=== PATIENT | male | born 1940 | race Two or more races ===

== ENCOUNTER 2020-06-10 09:52 | Outpatient (CLI) | payer OTHER | END 2020-06-10 09:54 | disposition home or self-care (01) | LOC: SONOGRAMA 09:52 → MAMO-SONO 10:15 | PROVIDERS: ATTEND Internal Medicine Cardiovascular Disease | DX: R10.84 Generalized abdominal pain (principal) ==

== ENCOUNTER 2021-01-25 08:45 | Outpatient (CLI) | payer OTHER | END 2021-01-25 08:46 | disposition home or self-care (01) | LOC: NUCLEAR 08:45 | PROVIDERS: ATTEND Internal Medicine Cardiovascular Disease | DX: I73.9 Peripheral vascular disease, unspecified (principal) ==

== ENCOUNTER 2021-01-28 09:14 | Outpatient (CLI) | payer OTHER | END 2021-01-28 09:16 | disposition home or self-care (01) | LOC: NUCLEAR 09:14 | PROVIDERS: ATTEND Internal Medicine Cardiovascular Disease | DX: I87.2 Venous insufficiency (chronic) (peripheral) (principal) ==

== ENCOUNTER 2021-01-28 11:43 | Inpatient (IN) | payer OTHER ==
[~2021-01-28] VITALS: Ht 177.8 cm; Wt 68.0 kg
[2021-01-31] MEDS ORDERED: LUMIGAN2.5 M1 (08:33)
[2021-01-31] MEDS ORDERED: LEVOTHYROXINE50 MCG (08:33)
[2021-01-31] MEDS ORDERED: ST. JOSEPH ASPI81 M2 (08:33)
[2021-01-31] MEDS ORDERED: TAMSULOSIN HCL0.4 MG (08:33)
[2021-01-31] MEDS ORDERED: DORZOLAMIDE-TIM10 ML (08:34)
== END 2021-03-04 12:19 | disposition home or self-care (01) | DRG 240 ==
LOC: MEDJ 11:43 → SEC-K 11:43 → MEDJ 01-29 21:43 → SEC-K 01-30 03:07 → MEDJ 01-30 05:53
PROVIDERS: Specialist; ADMIT Internal Medicine Cardiovascular Disease; ATTEND Internal Medicine Cardiovascular Disease
PROC: 0JBR0ZZ Excision of Left Foot Subcutaneous Tissue and Fascia, Open Approach (ICD-10-PCS; 2021-02-07)
PROC: 0Y6N0ZB Detachment at Left Foot, Partial 2nd Ray, Open Approach (ICD-10-PCS; principal; 2021-02-07 07:30)
PROC: 30233N1 Transfusion of Nonautologous Red Blood Cells into Peripheral Vein, Percutaneous Approach (ICD-10-PCS; 2021-02-22)
PROC: 0Y6N0ZF Detachment at Left Foot, Partial 5th Ray, Open Approach (ICD-10-PCS; 2021-02-23)
DX: E11.52 Type 2 diabetes mellitus with diabetic peripheral angiopathy with gangrene (principal); I96 Gangrene, not elsewhere classified; E11.621 Type 2 diabetes mellitus with foot ulcer; L97.524 Non-pressure chronic ulcer of other part of left foot with necrosis of bone; Z20.822 Contact with and (suspected) exposure to COVID-19; B95.61 Methicillin susceptible Staphylococcus aureus infection as the cause of diseases classified elsewhere
CPT/HCPCS: 70553

== ENCOUNTER 2021-09-10 06:24 | Inpatient (IN) | payer OTHER ==
[~2021-09-10] VITALS: Ht 177.8 cm; Wt 73.5 kg
[~2021-09-10 06:24] MED LIST: DORZOLAMIDE-TIM10 ML; LEVOTHYROXINE50 MCG; LUMIGAN2.5 M1; ST. JOSEPH ASPI81 M2; TAMSULOSIN HCL0.4 MG
[2021-09-20] MEDS ORDERED: NIFEDIPINE ER60 MG PO (09:10)
[2021-09-20] MEDS ORDERED: LOSARTAN POTAS100 MG PO (09:10)
== END 2021-09-20 19:30 | disposition home or self-care (01) | DRG 616 ==
LOC: ER 06:24 → MEDI 18:17 → MEDJ 18:17 → MEDI 09-13 19:06
PROVIDERS: ADMIT Internal Medicine; ATTEND Internal Medicine
PROC: 8E0ZXY6 Isolation (ICD-10-PCS; 2021-09-10)
PROC: 4A12X4Z Monitoring of Cardiac Electrical Activity, External Approach (ICD-10-PCS; 2021-09-11)
PROC: 0Y6N0Z6 Detachment at Left Foot, Complete 3rd Ray, Open Approach (ICD-10-PCS; principal; 2021-09-15)
DX: E11.621 Type 2 diabetes mellitus with foot ulcer (principal); U07.1 COVID-19; E11.52 Type 2 diabetes mellitus with diabetic peripheral angiopathy with gangrene; I96 Gangrene, not elsewhere classified; M86.172 Other acute osteomyelitis, left ankle and foot; B95.61 Methicillin susceptible Staphylococcus aureus infection as the cause of diseases classified elsewhere; L97.523 Non-pressure chronic ulcer of other part of left foot with necrosis of muscle; N17.8 Other acute kidney failure; E03.8 Other specified hypothyroidism; F03.90 Unspecified dementia, unspecified severity, without behavioral disturbance, psychotic disturbance, mood disturbance, and anxiety; E11.65 Type 2 diabetes mellitus with hyperglycemia; Z79.4 Long term (current) use of insulin; Z20.822 Contact with and (suspected) exposure to COVID-19

== ENCOUNTER 2022-12-16 08:34 | Emergency (ER) | payer OTHER ==
[~2022-12-16] VITALS: Ht 172.7 cm; Wt 72.6 kg
[~2022-12-16 08:34] MED LIST changes: +LOSARTAN POTAS100 MG PO; +NIFEDIPINE ER60 MG PO
[2022-12-16] MEDS ORDERED: LISINOPRIL10 MG PO (08:45)
[2022-12-16] MEDS ORDERED: HUMULIN 70100 UNIT/2 SQ (08:46)
== END 2022-12-16 13:03 | disposition home or self-care (01) ==
LOC: ER 08:34
DX: R53.83 Other fatigue (principal); R53.81 Other malaise; R07.89 Other chest pain; I10 Essential (primary) hypertension; Z88.0 Allergy status to penicillin; Z20.822 Contact with and (suspected) exposure to COVID-19

== ENCOUNTER 2022-12-18 06:21 | Emergency (ER) | payer OTHER ==
[~2022-12-18] VITALS: Ht 180.3 cm; Wt 68.0 kg
[~2022-12-18 06:21] MED LIST changes: +HUMULIN 70100 UNIT/2 SQ; +LISINOPRIL10 MG PO
== END 2022-12-18 09:53 | disposition home or self-care (01) ==
LOC: ER 06:21
DX: E11.649 Type 2 diabetes mellitus with hypoglycemia without coma (principal); Z79.4 Long term (current) use of insulin

== ENCOUNTER 2023-02-20 09:26 | Outpatient (CLI) | payer OTHER | END 2023-02-20 09:31 | disposition home or self-care (01) | LOC: RAD 09:26 | DX: M86.9 Osteomyelitis, unspecified (principal) ==